=== PATIENT | female | born 1990 | race Caucasian/White ===

== ENCOUNTER → 2019-03-16 | Outpatient (CLI) | payer OTHER, SELFPAY ==
[2019-03-19 13:07] LABS: HPV Reflexed? NOT INDICATED
== END | disposition home or self-care (01) ==
PROVIDERS: Referring Provider Obstetrics & Gynecology; Visit Provider Obstetrics & Gynecology
DX: Z12.4 Encounter for screening for malignant neoplasm of cervix (principal)
CPT/HCPCS: 88175; G0145

== ENCOUNTER → 2019-08-19 17:12 | Outpatient (CLI) | payer OTHER, SELFPAY | PROVIDERS: Referring Provider Urology; Visit Provider Urology | DX: R30.0 Dysuria (principal) | CPT/HCPCS: 87086; 87088 ==

== ENCOUNTER 2022-10-10 19:04 | Emergency (ER) | payer OTHER, SELFPAY ==
[2022-10-10 19:05] VITALS: BP 147/95; PULSE 85; RESP 18; TEMP 36.4; O2SAT 98; BMI 24.2
--- NOTE | 2022-10-10 19:13 | EX.ED.VISEXT ---
HPI History of Present Illness Chief Complaint: Bite Informant: patient Onset/Context/Timing Onset: Today Narrative Narrative: Patient noticed a small tick on her inner right upper arm this morning and removed it. Throughout the day, she has noticed some mild erythema around it. No discharge or systemic symptoms/fevers. When estimating the length of time it was there, she and family estimate no more than 24 hours but it could have been up to around 23-24. Tetanus Immunization: >10 years ROS ROS ED Constitutional Constitutional ED: Denies chills or fever(s) Musculoskeletal Musculoskeletal: Reports extremity pain; Denies neck pain Integumentary Reports wounds; Denies Abrasions or rash Neurologic Neurologic: Denies paresthesias or weakness PFSH PFSH Medical History no medical history Allergy/AdvReac Type Severity Reaction Status Date / Time No Known Allergies Allergy Verified 10/10/22 19:07 Social History Smoking Status: Never smoker EXAM Physical Exam Const Vital Signs: 10/10/22 19:05 Temperature 97.5 F L Temperature Source Temporal Pulse Rate 85 Respiratory Rate 18 Blood Pressure 147/95 H Blood Pressure Mean 112 Pulse Ox 98 Oxygen Delivery Method Room Air Positive well nourished and well developed General Appearance ED: well developed and NAD Neck full ROM and supple Back/Spine normal ROM and normal to inspection Extremity full ROM Extremity Narrative: Superficial tick bite site in the medial right upper arm, distal to the axilla; around 2 cm area of nonindurated erythema with minimal tenderness around this. Neuro oriented x3, no focal motor deficits and no sensory deficits noted Sensorium / Orientation: alert Psych mental status grossly normal and thought process normal Skin Skin Narrative: Tick bite as described above. Small flare around it, no raised wheal. No abscess. No lymphangitis. No petechia or bullae. No other rashes or lesions. Rashes: no rashes MDM MDM MDM Narrative Medical decision making narrative: Patient brought the tick and snack bag with her. It appears to be a very small nymph. Given this, I think it would be reasonable to prophylax her against Lyme with doxycycline 200 mg orally once here. I reassured her this is not Lyme disease, the incubation period is longer than a couple of hours. This is probably just inflammation from the tick bite. We cleansed it and placed a bandage with bacitracin, update her tetanus, given appropriate discharge instructions and reasons to return. Discharge Plan Triage Chief Complaint: Bite ED Provider: Juan Diego Elmore Dx/Rx/DC Orders Clinical Impression: Tick bite of right upper arm, Immunization, tetanus-diphtheria Instructions: ED Tick Bite, Abx Tx Primary Care Provider: NOT,DEFINED Referrals: NOT,DEFINED [Primary Care Provider] - Doctor,Your [Non-Staff] - As Needed Disposition Disposition: Home, Self Care
[2022-10-10] MEDS: Doxycycline 100 MG CAPSULE 200 MG PO (19:20)
[2022-10-10] MEDS: Diphth,Pertuss(Acell),Tet Vac 0.5 ML Vial IM (19:20)
== END 2022-10-10 19:30 | disposition home or self-care (01) ==
PROVIDERS: Emergency Provider Emergency Medicine; Visit Provider Emergency Medicine
DX: S40.861A Insect bite (nonvenomous) of right upper arm, initial encounter (principal); W57.XXXA Bitten or stung by nonvenomous insect and other nonvenomous arthropods, initial encounter; Z23 Encounter for immunization
CPT/HCPCS: 90471; 90715; 99283

== ENCOUNTER → 2022-11-21 | Outpatient (CLI) | payer OTHER, SELFPAY | END | disposition home or self-care (01) | LOC: LABSPEC 16:51 | PROVIDERS: Visit Provider Urology | DX: R31.21 Asymptomatic microscopic hematuria (principal) | CPT/HCPCS: 87086 ==

== ENCOUNTER 2022-11-27 06:32 | Emergency (ER) | payer OTHER, SELFPAY ==
[2022-11-27 06:34] VITALS: BP 155/93; PULSE 100; RESP 15; TEMP 36.8; O2SAT 99; BMI 24.7
--- NOTE | 2022-11-27 06:53 | US_ITS ---
INDICATION: pain -- UTI, BLADDER PRESSURE EXAMINATION: Ultrasound US Kidney(s) complete (eg, kidneys and bladder) TECHNIQUE: Ray scale and color doppler images were obtained of the kidneys. COMPARISON: None. FINDINGS: RIGHT KIDNEY: The right kidney measures 10.6 cm in length. There is no hydronephrosis. No shadowing calculus, focal lesion or perinephric collection is demonstrated. LEFT KIDNEY: The left kidney measures 10.3 cm in length. There is no hydronephrosis. No shadowing calculus or perinephric collection is demonstrated. There are possible renal sinus cysts. URINARY BLADDER: Within the posterior urinary bladder there is a 1.0 x 0.5 cm soft tissue filling defect. There are bilateral ureteral jets. US/Kidney and Bladder IMPRESSION: No hydronephrosis. Indeterminate 1.0 x 0.5 cm filling defect within the posterior urinary bladder, may be secondary to volume averaging however cannot entirely exclude an underlying lesion, consider direct visualization or CT for further evaluation. Electronically Signed: Bernice Vázquez MD at 8:13 EST ,
[2022-11-27] MEDS: Ketorolac 30 MG/ML Syringe IV (06:58)
--- NOTE | 2022-11-27 07:01 | EDS_ITS ---
HPI History of Present Illness Chief Complaint: Flank Pain Narrative Narrative: Patient is a 32-year-old female with no significant past medical history who presents with lower abdominal and flank pain. She states that over the past month she has sensation that she has to urinate and when she does so feels like she does not completely empty her bladder. She states that she also has constant discomfort in the abdominal region and she feels it radiates out towards the right and left lower abdomen. She states she talked to urology the other day and they ordered an ultrasound of her kidney and bladder because of the recurrent symptoms. Patient states that she has not had this obtained yet but feels like the pain has worsened in the last 24 to 48 hours and secondary to this comes in for evaluation. Patient denies any vaginal bleeding or discharge or concern for or STD. She denies any past medical history such as interstitial cystitis or neurogenic bladder PFSH PFSH Home Medications spironolactone 100 mg tablet 50 mg PO DAILY 11/27/22 [History Last Taken Unknown] sulfamethoxazole 800 mg-trimethoprim 160 mg tablet 1 tab PO DAILY 11/27/22 [History Last Taken Unknown] Allergy/AdvReac Type Severity Reaction Status Date / Time No Known Allergies Allergy Verified 11/27/22 06:41 Social History Smoking Status: Never smoker [facility] ED Constitutional Constitutional ED: Denies chills or fever(s) ENT ENT ED: Denies sore throat Cardiovascular Cardiovascular: Denies chest pain Respiratory/Chest Respiratory/Chest: Denies cough or dyspnea Gastrointestinal Gastrointestinal: Reports abdominal pain; Denies diarrhea, nausea or vomiting Genitourinary Genitourinary ED: Reports urinary frequency; Denies dysuria Musculoskeletal Musculoskeletal: Denies back pain or myalgias Integumentary Denies rash Neurologic Neurologic: Denies headache(s) Hematologic/Lymphatic Hematologic/Lymphatic: Denies easy bleeding or easy bruising EXAM Physical Exam Const Vital Signs: 11/27/22 06:34 Temperature 98.2 F Temperature Source Oral Pulse Rate 100 Respiratory Rate 15 Blood Pressure 155/93 H Blood Pressure Mean 113 Pulse Ox 99 Oxygen Delivery Method Room Air Positive well nourished and well developed General Appearance ED: well developed Eyes PERRL and EOMs intact bilaterally General Eye ED: Negative for scleral icterus Neck supple Resp normal respiratory effort and clear to auscultation bilaterally Cardio regular rate and regular rhythm Rate: other Other Details: Radial pulses are +2-4 bilaterally are equal and symmetric GI non-distended GI Narrative: Abdomen is soft and nondistended with normoactive bowel sounds. There is pain on palpation diffusely in the lower abdomen but greatest in the suprapubic region without voluntary guarding or rigidity. No organomegaly noted. Auscultation: normoactive bowel sounds Palpation: soft Back/Spine no CVA tenderness Extremity normal to inspection Neuro oriented x3 and CN's II-XII intact bilaterally Sensorium / Orientation: alert Psych mental status grossly normal Skin no rashes or lesions noted General Skin Exam: Negative for jaundice MDM MDM MDM Narrative Medical decision making narrative: Patient presented to the ER hypertensive otherwise with stable vitals. She repo rted symptoms had been ongoing for roughly 1 month but seem to be worsening in the last few days. She reported that she felt like she had incomplete emptying but on exam there is no signs of a distended bladder. Therefore at this time I will check urine sample for infection as well as basic laboratory studies to look for any type of electrolyte derangement or acute kidney injury. As the patient states she had an ultrasound ordered by the specialist but has not had a chance to obtain I will perform at this time and I do feel that is the more appropriate study as she does not have CVA pain to suggest that this is a atypical presentation for kidney stone. The patient will be signed out to the daytime physician Dr. Gonzalez pending the labs and imaging results Lab Data Labs: Laboratory Results - last 24 hr 11/27/22 11/27/22 11/27/22 06:35 06:35 06:45 WBC 9.0 RBC 5.02 Hgb 14.5 Hct 43.2 MCV 86.1 MCH 28.9 MCHC 33.6 RDW Std Deviation 38.3 RDW Coeff of [place] 12.2 Plt Count 355 MPV 10.2 Immature Gran % (Auto) 0.600 Neut % (Auto) 74.0 H Lymph % (Auto) 17.1 L [place] % (Auto) 5.7 Eos % (Auto) 1.8 Baso % (Auto) 0.8 Absolute Neuts (auto) 6.6 Absolute Lymphs (auto) 1.53 Nucleated RBC % 0 Sodium 135 L Potassium 3.9 Chloride 104 Carbon Dioxide 24.0 Anion Gap 7 BUN 10 Creatinine 0.97 Estim Creat Clear Calc 78.67 Est GFR (MDRD) Af Amer 86 Est GFR (MDRD) Non-Af 71 BUN/Creatinine Ratio 10.3 Glucose 89 Calcium 9.2 Urine Color Yellow Urine Clarity Clear Urine pH 7.0 Ur Specific [place] 1.005 Urine Protein Negative Urine Glucose (UA) Normal Urine Ketones Negative Urine Occult Blood Negative Urine Nitrite Negative Urine Bilirubin Negative Urine Urobilinogen Normal Ur Leukocyte Esterase Negative Urine RBC 0 SEEN Urine WBC 0 SEEN Ur Squamous Epith Cells 0-5 SEEN Urine Bacteria 0 SEEN Urine Mucus 0 SEEN Urine Test Negative Discharge Plan Triage Chief Complaint: Flank Pain ED Provider: Johnny Soliz Dx/Rx/DC Orders Prescriptions: No Action spironolactone 100 mg tablet 50 mg PO DAILY Label Comments: TAKE 1 TABLET BY MOUTH EVERY DAY AT THE SAME TIME sulfamethoxazole-trimethoprim 800-160 mg tablet 1 tab PO DAILY Label Comments: TAKE 1 TABLET BY MOUTH EVERY 12 HOURS FOR 3 DAYS Primary Care Provider: Care Physician,No Primary Referrals: Care Physician,No Primary [Primary Care Provider] -
[2022-11-27 07:03] LABS: Bacteria 0 SEEN /hpf (None Seen); Mucous, Urine 0 SEEN /hpf (<or=2+); Red Blood Cells-Urine 0 SEEN /hpf (0-5); White Blood Cells 0 SEEN /hpf (0-5)
[2022-11-27 07:04] LABS: Color, Urine Yellow (Yellow); Glucose, Dipstick Normal (Normal); Ketone-Dipstick Negative (Negative); Leukocyte Esterase-Dipstick Negative /ul (Negative); Nitrite-Dipstick Negative (Negative); Occult Blood-Urine Negative /ul (Negative); Protein-Dipstick Negative (Negative); Specific Gravity, Urine 1.005 (1.002-1.030); Urine Bilirubin Dipstick Negative (Negative); Urine Clarity Clear (Clear); Urine Urobilinogen Normal (Normal)
[2022-11-27 07:04] LABS: Absolute Lymphocyte Count 1.53 X10^3/uL (0.83-4.51); Absolute Neutrophil Count 6.6 X10^3/uL (2.0-7.7); Basophil# 0.07 X10^3/uL; Basophil% 0.8 % (0-1); Eosinophil# 0.16 X10^3/uL; Eosinophils% 1.8 % (0-5); Hematocrit 43.2 % (37-47); Hemoglobin 14.5 g/dL (12.0-15.0); Lymphocyte # 1.53 X10^3/ul (0.83-4.51); Lymphocyte % 17.1 % (19-41); Mean Corp Hgb Conc 33.6 g/dL (32-36); Mean Corpuscular Hgb 28.9 pg (27.0-32.0); Mean Corpuscular Volume 86.1 fL (81-99); Mean Platelet Vol. 10.2 fl (6.2-12.0); Monocyte# 0.51 X10^3/uL; Monocyte% 5.7 % (0-10); NRBC Flagged by Analyzer 0 % (0-5); Neutrophil # 6.63 X10^3/uL (2.7-7.7); Platelet Count 355 K/mm3 (150-450); RBC Distribution Width CV 12.2 % (11.6-14.6); RBC Distribution Width SD 38.3 fl (35.1-43.9); Red Blood Count 5.02 M/mm3 (4.2-5.4)
[2022-11-27 07:06] LABS: Internal QC Validated? YES +Cl - CLEAR BKGD; Pregnancy, Urine Negative Negative
[2022-11-27 07:21] LABS: Anion Gap 7 (5-15); BUN 10 mg/dL (7-18); BUN/Creat Ratio 10.3 RATIO (10-20); Calcium,Total 9.2 mg/dL (8.5-10.1); Chloride 104 mmol/L (98-107); Creatinine, Serum 0.97 mg/dL (0.55-1.02); EST Glomerular Filtration Rate 71 mL/min (>60); Est Glom Filt Rate - Afr Amer 86 mL/min (>60); Estimated Creatinine Clearance 78.67 ml/min; Glucose 89 mg/dL (74-106); Potassium 3.9 mmol/L (3.5-5.1); Sodium Level 135 mmol/L (136-145)
[2022-11-27 07:28] LABS: Squamous Epithelial Cells - UA 0-5 SEEN /hpf (5-10)
--- NOTE | 2022-11-27 08:14 | CT_ITS ---
INDICATION: abdominal pain, bladder filling defect EXAMINATION: CT ABDOMEN AND PELVIS WITH CONTRAST - CT Abdomen And Pelvis W/ Contrast Injection TECHNIQUE: Helically acquired images were obtained of the abdomen and pelvis following IV contrast. Delayed images were obtained and reviewed. A radiation dose optimization technique was used for this scan. IV Contrast dosage and agent: 100 cc of Isovue 370 Oral contrast: None. COMPARISON: Renal ultrasound dated November 27, 2022 FINDINGS: LOWER CHEST: Lung bases are clear. No cardiomegaly or pericardial effusion. LIVER: Homogeneous. No focal mass. GALLBLADDER AND BILIARY TREE: No calcified gallstones. No gallbladder distension or wall edema. No intra- or extrahepatic biliary ductal dilation. PANCREAS: No focal cystic or solid mass. SPLEEN: Normal size without focal cystic or solid mass. ADRENAL GLANDS: No nodules. KIDNEYS AND URETERS: Normal renal size and position. No hydronephrosis. PERITONEUM: No ascites or free air. No other fluid collection. BOWEL: No evidence of acute appendicitis. No stomach or bowel distension. No focal inflammatory change. There is a moderate amount of stool throughout the colon. LYMPH NODES: No enlarged mesenteric or retroperitoneal lymph nodes. VESSELS: Aorta is non-dilated. URINARY BLADDER: Unremarkable. No filling defects are visualized. REPRODUCTIVE ORGANS: No pelvic masses. ABDOMINAL WALL: No discrete abdominal or pelvic wall hernia. BONES: No lytic or blastic abnormality. CT/Abdomen/Pelvis W IV Cont ONLY IMPRESSION: Moderate amount of stool throughout the colon. Electronically Signed: Bernice Vázquez MD at 8:46 EST ,
--- NOTE | 2022-11-27 09:24 | EDS_ITS ---
HPI HPI - Female History of Present Illness Chief Complaint: Flank Pain PFSH PFSH Home Medications phenazopyridine 200 mg tablet (Pyridium) 200 mg PO TID PRN pain 6 doses #6 tabs 11/27/22 [Rx Last Taken Unknown] spironolactone 100 mg tablet 50 mg PO DAILY 11/27/22 [History Last Taken Unknown] sulfamethoxazole 800 mg-trimethoprim 160 mg tablet 1 tab PO DAILY 11/27/22 [History Last Taken Unknown] Allergy/AdvReac Type Severity Reaction Status Date / Time No Known Allergies Allergy Verified 11/27/22 06:41 Social History Smoking Status: Never smoker EXAM Physical Exam Const Vital Signs: 11/27/22 06:34 Temperature 98.2 F Temperature Source Oral Pulse Rate 100 Respiratory Rate 15 Blood Pressure 155/93 H Blood Pressure Mean 113 Pulse Ox 99 Oxygen Delivery Method Room Air [facility] Lab Data Labs: Laboratory Results - last 24 hr 11/27/22 11/27/22 11/27/22 06:35 06:35 06:45 WBC 9.0 RBC 5.02 Hgb 14.5 Hct 43.2 MCV 86.1 MCH 28.9 MCHC 33.6 RDW Std Deviation 38.3 RDW Coeff of [place] 12.2 Plt Count 355 MPV 10.2 Immature Gran % (Auto) 0.600 Neut % (Auto) 74.0 H Lymph % (Auto) 17.1 L [place] % (Auto) 5.7 Eos % (Auto) 1.8 Baso % (Auto) 0.8 Absolute Neuts (auto) 6.6 Absolute Lymphs (auto) 1.53 Nucleated RBC % 0 Sodium 135 L Potassium 3.9 Chloride 104 Carbon Dioxide 24.0 Anion Gap 7 BUN 10 Creatinine 0.97 Estim Creat Clear Calc 78.67 Est GFR (MDRD) Af Amer 86 Est GFR (MDRD) Non-Af 71 BUN/Creatinine Ratio 10.3 Glucose 89 Calcium 9.2 Urine Color Yellow Urine Clarity Clear Urine pH 7.0 Ur Specific [place] 1.005 Urine Protein Negative Urine Glucose (UA) Normal Urine Ketones Negative Urine Occult Blood Negative Urine Nitrite Negative Urine Bilirubin Negative Urine Urobilinogen Normal Ur Leukocyte Esterase Negative Urine RBC 0 SEEN Urine WBC 0 SEEN Ur Squamous Epith Cells 0-5 SEEN Urine Bacteria 0 SEEN Urine Mucus 0 SEEN Urine Test Negative Radiography Diagnostic Testing: Clinical Impression(s) from Imaging Studies Renal Ultrasound 11/27/22 06:53 IMPRESSION: No hydronephrosis. Indeterminate 1.0 x 0.5 cm filling defect within the posterior urinary bladder, may be secondary to volume averaging however cannot entirely exclude an underlying lesion, consider direct visualization or CT for further evaluation. Electronically Signed: Bernice Vázquez MD at 8:13 EST , Abdomen/Pelvis CT 11/27/22 08:14 IMPRESSION: Moderate amount of stool throughout the colon. Electronically Signed: Bernice Vázquez MD at 8:46 EST , Discharge Plan Triage Chief Complaint: Flank Pain ED Provider: Johnny Soliz Dx/Rx/DC Orders Clinical Impression: Abdominal pain, Dysuria Instructions: ED Abdominal Pain Unkn Cause Fem, ED Dysuria, Uncertain Cause (Adult) Prescriptions: New phenazopyridine [Pyridium] 200 mg tablet 200 mg PO TID PRN (Reason: pain) Qty: 6 0RF No Action spironolactone 100 mg tablet 50 mg PO DAILY Label Comments: TAKE 1 TABLET BY MOUTH EVERY DAY AT THE SAME TIME sulfamethoxazole-trimethoprim 800-160 mg tablet 1 tab PO DAILY Label Comments: TAKE 1 TABLET BY MOUTH EVERY 12 HOURS FOR 3 DAYS Primary Care Provider: Care Physician,No Primary Referrals: Per Dai MD [Med Staff - Active Staff] - 3-5 Days Care Physician,No Primary [Primary Care Provider] - Disposition Disposition: Home, Self Care
[2022-11-27] MEDS: Phenazopyridine 95 MG Tablet 190 MG PO (09:33)
== END 2022-11-27 09:42 | disposition home or self-care (01) ==
PROVIDERS: Emergency Provider Emergency Medicine; Visit Provider Emergency Medicine
DX: R10.9 Unspecified abdominal pain (principal); R30.0 Dysuria
CPT/HCPCS: 74177; 76770; 80048; 81001; 81025; 85025; 96374; 99284; Q9967; A4216